=== PATIENT | female | born 1975 | race Caucasian/White ===

== ENCOUNTER 2018-04-13 13:17 | Emergency (ER) | payer BC, OTHER ==
[~2018-04-13] VITALS: Ht 170.2 cm; Wt 87.5 kg
[~2018-04-13 13:17] MED LIST: CYCL5TAB PO; LEVO.125 PO; LORT5TAB PO; METHY10 PO
[2018-04-13 13:30] VITALS: BP 142/85; PULSE 99; RESP 16; TEMP 98.2; O2SAT 98
[2018-04-13] MEDS ORDERED: LEVO.125 PO (13:52)
[2018-04-13] MEDS ORDERED: MELO7.5T27 PO (13:52)
[2018-04-13] MEDS ORDERED: PRED10 PO (13:52)
[2018-04-13] MEDS ORDERED: RITA20TA PO (13:52)
[2018-04-13] MEDS ORDERED: KETOROLAC TROMETHAMINE 60 MG/2 ML (IM) VIAL IM ONE (14:15)
--- NOTE | 2018-04-13 14:53 | RADRPT ---
EXAM DATE: 04/13/2018 2:20 PM EDT AGE/SEX: 42 years / Female INDICATIONS: Left foot pain post falling CLINICAL DATA: This is the patient's initial encounter. Patient reports that signs and symptoms have been present for 1 day and indicates a pain score of 10/10. MEDICAL/SURGICAL HISTORY: None. . Left achilles tendon surgery COMPARISON: No prior exams available for comparison. FINDINGS: There are nondisplaced fracture seen at the proximal aspects of the second, third and fourth metatars als. Significant displacement is not seen. There is hypertrophic change at the posterior aspect of th e calcaneus at the Achilles attachment site. Osseous density is normal. Soft tissues are unremarkabl e. No radiopaque foreign bodies seen. CONCLUSION: Nondisplaced fractures at the proximal aspects of the second through fourth metatarsals. Achilles hypertrophic change. Electronically signed by: Sidney Hdez MD 04/13/2018 2:51 PM EDT
--- NOTE | 2018-04-13 15:14 | PD ---
HPI Chief Complaint: Injury Time Seen by Provider: 13:56 Travel History International Travel<30 days: No Contact w/Intl Traveler<30days: No Traveled to known affect area: No History of Present Illness HPI 42-year-old female here with left foot pain after twisting injury prior to arrival. She reports she tripped over her dog causing the foot to twist. She has pain with weightbearing. She has had multiple surgeries on this foot. Denies altered sensation or weakness of the foot or toes. Symptom severity is moderate. Denies head injury loss of consciousness. Symptom severity is moderate. PFSH Past Medical History ADD: Yes Blood Disorders: No Cancer: No Cardiovascular Problems: No Chemotherapy: No Immune Disorder: No Musculoskeletal: No Neurologic: No Psychiatric: Yes (ADD) Reproductive: No Respiratory: No Radiation Therapy: No Thyroid Disease: Yes (hypothyroidism) Tetanus Vaccination: < 5 Years Influenza Vaccination: Yes ?: Not LMP: 50 days ago irregular Dilation and Curettage (D&C): Yes Tubal Ligation: No Past Surgical History Pacemaker: No Social History Alcohol Use: Yes (OCCASIONAL) Tobacco Use: No Substance Use: No Allergies-Medications (Allergen,Severity, Reaction): Coded Allergies: No Known Drug Allergies (Verified Allergy, Unknown, 04/13/18) Reported Meds & Prescriptions Reported Meds & Active Scripts Active Reported Prednisone 10 Mg Tab Unknown Dose PO DIRECTED Meloxicam 7.5 Mg Tab Unknown Dose PO DAILY Ritalin IR (Methylphenidate HCl) 20 Mg Tab 20 Mg PO DAILY Synthroid (Levothyroxine Sodium) 125 Mcg Tab 125 Mcg PO DAILY Review of Systems Except as stated in HPI: all other systems reviewed are Neg General / Constitutional: No: Fever Eyes: No: Visual changes HENT: No: Headaches Cardiovascular: No: Chest Pain or Discomfort Respiratory: No: Shortness of Breath Gastrointestinal: No: Abdominal Pain Genitourinary: No: Dysuria Musculoskeletal: Positive: Pain (Left foot pain) Skin: No Rash Physical Exam Narrative GENERAL: Alert and well-appearing 42-year-old female SKIN: Warm and dry. HEAD: Normocephalic. Atraumatic EYES: Pupils equal, round, reactive to light. EOMs intact. No injection or drainage. NECK: Supple, trachea midline. No midline spine tenderness CARDIOVASCULAR: Regular rate and rhythm RESPIRATORY: Breath sounds equal bilaterally. No accessory muscle use. GASTROINTESTINAL: Abdomen soft, non-tender, nondistended. MUSCULOSKELETAL: No cyanosis, or edema. Left foot: +TTP dorsal aspect of the foot. No obvious deformity. Palpable DP pulse. Can freely wiggle the toes. Sensation is intact. Cap refill intact. No tenderness of the ankle. Data Data Last Documented VS Vital Signs Date Time Temp Pulse Resp B/P (MAP) Pulse Ox O2 Delivery O2 Flow Rate FiO2 04/13/18 13:30 98.2 99 16 142/85 (104) 98 Orders Orders Foot, Complete ([id number]) (04/13/18 ) Ketorolac Inj (Toradol Inj) (04/13/18 14:15) Splint Or Brace Apply/Monitor (04/13/18 15:09) Crutches (04/13/18 15:09) MDM Medical Decision Making Medical Screen Exam Complete: Yes Emergency Medical Condition: Yes Differential Diagnosis Metatarsal fracture, midfoot sprain, Lisfranc injury Narrative Course 42-year-old female here with left foot pain. X-ray shows proximal nondisplaced fractures of the second, third, fourth metatarsals. She can freely wiggle the toes. She ambulated into the ED. The extremity is neurovascularly intact. She is already established with a mirror department supervisor locally due to prior fracture in the foot. She was put in a posterior short leg splint and crutches. Her chart indicates that she was allergic to all pain meds which she denies. She reports she is can take Marion without any reaction. Diagnosis Primary Impression: Metatarsal fracture Qualified Codes: S92.302A - Fracture of unspecified metatarsal bone(s), left foot, initial encounter for closed fracture Referrals: [facility] Departure Forms: Tests/Procedures, Work Release Special Instructions: No weightbearing on the left foot must use crutches. Additional Instructions: Splint must stay in place until follow-up with the orthopedist/mirror department supervisor Crutches for weightbearing. Pain medication as directed. Ibuprofen 800 mg every 6 hours for pain. Call to schedule follow-up appointment with your mirror department supervisor. Scripts Hydrocodone-Acetaminophen (Marion) 5 Mg-325 Mg Tab 1 TAB PO Q6H Y for PAIN, #12 TAB 0 Refills Prov: ReddyLiza NOLAN 04/13/18 Disposition: 01 DISCHARGE HOME Condition: Stable Liza Blakely Apr 13, 2018 15:14
[2018-04-13] MEDS ORDERED: NORC5TAB PO (15:17)
[2018-04-13] MEDS ORDERED: ACETAMINOPHEN/HYDROcodone 325 MG/5 MG TAB PO ONE (15:30)
[2018-04-13 15:59] VITALS: BP 140/76; PULSE 76; TEMP 97.9; O2SAT 97
== END 2018-04-13 16:05 | disposition home or self-care (01) ==
LOC: PHEFT 13:17
DX: S92.302A Fracture of unspecified metatarsal bone(s), left foot, initial encounter for closed fracture (principal); E03.9 Hypothyroidism, unspecified; W01.0XXA Fall on same level from slipping, tripping and stumbling without subsequent striking against object, initial encounter; Y93.01 Activity, walking, marching and hiking
CPT/HCPCS: 29515; 73630; 96372; 99283; E0113; J1885